=== PATIENT | female | born 1985 ===

== ENCOUNTER 2022-05-24 10:39 | Inpatient (IN) | payer BC ==
[2022-05-24 13:30] VITALS: BMI 27.4
[2022-05-24] MEDS ORDERED: ACETAMINOPHEN 325 MG TABLET (FP) PO PRN ×2 (14:08)
[2022-05-24] MEDS ORDERED: chlordiazePOXIDE HCL 25 MG CAPSULE PO PRN (14:08)
[2022-05-24] MEDS ORDERED: IBUPROFEN 400 MG TABLET (FP) PO PRN (14:08)
[2022-05-24] MEDS ORDERED: MAGNESIUM CITRATE 300 ML BOTTLE PO PRN (14:08)
[2022-05-24] MEDS ORDERED: LOPERAMIDE HCL 2 MG CAPSULE PO PRN (14:08)
[2022-05-24] MEDS ORDERED: BISMUTH SUBSALICYLATE 524 MG/30 ML PO PRN (14:08)
[2022-05-24] MEDS ORDERED: DICYCLOMINE HCL 10 MG CAPSULE PO PRN (14:08)
[2022-05-24] MEDS ORDERED: MAG HYDROX/AL HYDROX/SIMETH 30 ML UNIT-DOSE CUP PO PRN (14:08)
[2022-05-24] MEDS ORDERED: BENZOCAINE/MENTHOL (CHLORASEPTIC ) LOZENGE MM PRN (14:08)
[2022-05-24] MEDS ORDERED: MAGNESIUM HYDROX 2400MG/30ML ORAL SUSPENSION 30 ML CUP PO PRN (14:08)
[2022-05-24] MEDS ORDERED: ONDANSETRON *ODT* 4 MG TABLET SL PRN (14:08)
[2022-05-24] MEDS ORDERED: HYDROCORTISONE 1% TOPICAL OINT 30 GM TUBE TP PRN (14:28)
[2022-05-24] MEDS: IBUPROFEN 600 MG TABLET (FP) PO PRN (15:26)
[2022-05-24] MEDS: LIDOCAINE 5% TOPICAL PATCH TP SCH (15:27)
[2022-05-24] MEDS: chlordiazePOXIDE HCL 25 MG CAPSULE PO SCH ×2 (17:31→22:42)
[2022-05-24] MEDS: hydrOXYzine PAMOATE 25 MG CAPSULE (FP) PO SCH ×2 (17:31→22:41)
[2022-05-24] MEDS ORDERED: MELATONIN 5 MG TABLETS PO SCH (22:00)
[2022-05-24] MEDS: QUEtiapine FUMARATE 25 MG TABLET PO PRN (22:42)
[2022-05-24] MEDS: THIAMINE HCL 100 MG TABLET (FP) PO SCH (22:42)
[2022-05-24] MEDS: APIXABAN 5 MG TABLET PO SCH (22:42)
[2022-05-24] MEDS: LIDOCAINE PATCH REMOVAL MC SCH (22:43)
[2022-05-24] MEDS: NICOTINE POLACRILEX 2 MG GUM BUC PRN (22:45)
[2022-05-25] MEDS: hydrOXYzine PAMOATE 25 MG CAPSULE (FP) PO SCH ×5 (05:48→22:18)
[2022-05-25] MEDS: chlordiazePOXIDE HCL 25 MG CAPSULE PO SCH ×4 (05:48→22:18)
[2022-05-25] MEDS: NICOTINE POLACRILEX 2 MG GUM BUC PRN ×2 (05:50→20:26)
[2022-05-25] MEDS ORDERED: ALBUTEROL SO4 HFA INHALER IH PRN (09:06)
[2022-05-25] MEDS: APIXABAN 5 MG TABLET PO SCH ×2 (11:06→22:18)
[2022-05-25] MEDS: PRENATAL VITAMINS W/ FOLIC ACID TABLET (FP) PO SCH (11:06)
[2022-05-25] MEDS: LIDOCAINE 5% TOPICAL PATCH TP SCH (12:26)
[2022-05-25] MEDS ORDERED: methaDONE HCL 10 MG TABLET (FOR DETOX USE ONLY) PO ONE (12:39)
[2022-05-25 14:31] LABS: HEMATOCRIT 34.7 % (32.4-45.2); HEMOGLOBIN 11.5 GM/dL (10.7-15.3); MCH 30.5 pg (25.7-33.7); MCHC 33.1 g/dl (32.0-36.0); MEAN PLT VOLUME 8.9 fl (7.5-11.1); PLATELET COUNT 152 10^3/uL (134-434); RBC 3.77 M/mm3 (3.60-5.2); RDW 19.4 % (11.6-15.6); WHITE BLOOD COUNT 4.9 K/mm3 (4.0-10.0)
[2022-05-25 14:43] LABS: BLOOD UREA NITROGEN 10.5 mg/dL (7-18); CALCIUM 8.1 mg/dL (8.5-10.1)
[2022-05-25 14:44] LABS: ALBUMIN 2.9 g/dl (3.4-5.0)
[2022-05-25 14:46] LABS: CREATININE 0.6 mg/dL (0.55-1.3)
[2022-05-25 14:48] LABS: BILIRUBIN,TOTAL 0.6 mg/dL (0.2-1); TOT PROT 5.9 g/dl (6.4-8.2)
[2022-05-25 15:33] LABS: HIV INTERPRETATION NEGATIVE (NEGATIVE)
[2022-05-25 17:34] LABS: EPI CELLS >36 /uL (0-25.1); HYALINE CASTS 1 /uL (0-3.1); PH,URINE 5.5 (5.0-8.0); URINE APPEARANCE CLOUDY; URINE BACTERIA 1753 /uL (0-1359); URINE BILIRUBIN NEGATIVE (NEGATIVE); URINE COLOR YELLOW; URINE GLUCOSE (UA) NEGATIVE (NEGATIVE); URINE KETONE NEGATIVE (NEGATIVE); URINE LEUK ESTERASE TRACE (NEGATIVE); URINE NITRITE NEGATIVE (NEGATIVE); URINE PROTEIN NEGATIVE (NEGATIVE); URINE RBC 49 /uL (0-23.9); URINE UROBILINOGEN 0.2 mg/dL (0.2-1.0); URINE WBC 120 /uL (0-25.8)
[2022-05-25] MEDS: METHOCARBAMOL 500 MG TABLET PO PRN (18:36)
[2022-05-25 18:41] LABS: URINE CRYSTALS MANY /hpf
[2022-05-25] MEDS: THIAMINE HCL 100 MG TABLET (FP) PO SCH (22:18)
[2022-05-25] MEDS: SUVOREXANT 10 MG TABLET PO PRN (22:19)
[2022-05-26] MEDS: LIDOCAINE PATCH REMOVAL MC SCH ×2 (00:04→23:38)
[2022-05-26] MEDS: QUEtiapine FUMARATE 25 MG TABLET PO PRN (02:34)
[2022-05-26] MEDS: hydrOXYzine PAMOATE 25 MG CAPSULE (FP) PO SCH ×5 (05:59→22:19)
[2022-05-26] MEDS: chlordiazePOXIDE HCL 25 MG CAPSULE PO SCH ×4 (05:59→22:19)
[2022-05-26] MEDS: APIXABAN 5 MG TABLET PO SCH ×2 (09:42→22:19)
[2022-05-26] MEDS: LIDOCAINE 5% TOPICAL PATCH TP SCH (09:42)
[2022-05-26] MEDS: PRENATAL VITAMINS W/ FOLIC ACID TABLET (FP) PO SCH (09:44)
[2022-05-26] MEDS ORDERED: methaDONE HCL 10 MG TABLET (FOR DETOX USE ONLY) PO ONE ×2 (10:00)
[2022-05-26] MEDS: NICOTINE 10 MG CARTRIDGE (INHALER) IH PRN (13:32)
[2022-05-26] MEDS: NITROFURANTOIN MACROCRYSTAL 50 MG CAPSULE (FP) PO SCH ×3 (13:50→22:19)
[2022-05-26] MEDS: METHOCARBAMOL 500 MG TABLET PO PRN (17:01)
[2022-05-26] MEDS: THIAMINE HCL 100 MG TABLET (FP) PO SCH (22:19)
[2022-05-26] MEDS: SUVOREXANT 10 MG TABLET PO PRN (22:20)
[2022-05-27] MEDS ORDERED: chlordiazePOXIDE HCL 10 MG CAPSULE PO PRN
[2022-05-27] MEDS: QUEtiapine FUMARATE 25 MG TABLET PO PRN ×2 (01:33→22:14)
[2022-05-27] MEDS: chlordiazePOXIDE HCL 10 MG CAPSULE PO SCH ×4 (05:59→22:14)
[2022-05-27] MEDS: hydrOXYzine PAMOATE 25 MG CAPSULE (FP) PO SCH ×2 (05:59→10:08)
[2022-05-27] MEDS ORDERED: methaDONE HCL 10 MG TABLET (FOR DETOX USE ONLY) PO ONE (10:00)
[2022-05-27] MEDS: LIDOCAINE 5% TOPICAL PATCH TP SCH (10:08)
[2022-05-27] MEDS: PRENATAL VITAMINS W/ FOLIC ACID TABLET (FP) PO SCH (10:08)
[2022-05-27] MEDS: APIXABAN 5 MG TABLET PO SCH ×2 (10:08→22:14)
[2022-05-27] MEDS: METHOCARBAMOL 500 MG TABLET PO PRN (10:09)
[2022-05-27] MEDS: NITROFURANTOIN MACROCRYSTAL 50 MG CAPSULE (FP) PO SCH ×4 (10:10→22:15)
[2022-05-27] MEDS: NICOTINE 10 MG CARTRIDGE (INHALER) IH PRN ×2 (10:16→17:55)
[2022-05-27] MEDS: CALCIUM 250MG/VIT-D 125 UNITS 1 COMBO TABLET PO SCH (12:34)
[2022-05-27] MEDS: hydrOXYzine PAMOATE 50 MG CAPSULE (FP) PO PRN (13:04)
[2022-05-27] MEDS: THIAMINE HCL 100 MG TABLET (FP) PO SCH (22:14)
[2022-05-27] MEDS: SUVOREXANT 10 MG TABLET PO PRN (22:17)
[2022-05-27] MEDS: LIDOCAINE PATCH REMOVAL MC SCH (22:20)
[2022-05-28] MEDS: hydrOXYzine PAMOATE 50 MG CAPSULE (FP) PO PRN ×2 (03:42→18:09)
[2022-05-28] MEDS: chlordiazePOXIDE HCL 10 MG CAPSULE PO SCH ×2 (05:15→18:08)
[2022-05-28] MEDS: METHOCARBAMOL 500 MG TABLET PO PRN ×2 (05:32→18:09)
[2022-05-28] MEDS: IBUPROFEN 600 MG TABLET (FP) PO PRN (05:32)
[2022-05-28] MEDS ORDERED: methaDONE HCL 10 MG TABLET (FOR DETOX USE ONLY) PO SCH (10:00)
[2022-05-28] MEDS ORDERED: methaDONE HCL 10 MG TABLET (FOR DETOX USE ONLY) PO ONE (10:00)
[2022-05-28] MEDS: APIXABAN 5 MG TABLET PO SCH (10:09)
[2022-05-28] MEDS: CALCIUM 250MG/VIT-D 125 UNITS 1 COMBO TABLET PO SCH (10:09)
[2022-05-28] MEDS: NITROFURANTOIN MACROCRYSTAL 50 MG CAPSULE (FP) PO SCH ×3 (10:09→18:54)
[2022-05-28] MEDS: PRENATAL VITAMINS W/ FOLIC ACID TABLET (FP) PO SCH (10:09)
[2022-05-28] MEDS: LIDOCAINE 5% TOPICAL PATCH TP SCH (10:09)
[2022-05-28] MEDS: NICOTINE 10 MG CARTRIDGE (INHALER) IH PRN (10:58)
[2022-05-28 12:47] VITALS: RESP 18
[2022-05-28] MEDS ORDERED: LACTULOSE 20 GM/30 ML UDC (FOR ORAL USE ONLY) PO SCH (15:30)
[2022-05-28 19:07] VITALS: BP 141/78; PULSE 71; TEMP 97.4
[2022-05-29] MEDS ORDERED: chlordiazePOXIDE HCL 10 MG CAPSULE PO ONE (05:00)
[2022-05-29] MEDS ORDERED: methaDONE HCL 10 MG TABLET (FOR DETOX USE ONLY) PO ONE (06:00)
== END 2022-05-28 20:05 | disposition left against medical advice (07) | DRG 770 ==
LOC: YASAS 10:39 → Y6N 15:03
PROVIDERS: ADMIT Allergy & Immunology; ATTEND Surgery
PROC: HZ2ZZZZ Detoxification Services for Substance Abuse Treatment (ICD-10-PCS; principal; 2022-05-24)
DX: F11.23 Opioid dependence with withdrawal (principal); F10.230 Alcohol dependence with withdrawal, uncomplicated; F14.20 Cocaine dependence, uncomplicated; F12.20 Cannabis dependence, uncomplicated; F17.210 Nicotine dependence, cigarettes, uncomplicated; F10.282 Alcohol dependence with alcohol-induced sleep disorder; F10.280 Alcohol dependence with alcohol-induced anxiety disorder; F39 Unspecified mood [affective] disorder; F41.9 Anxiety disorder, unspecified; I10 Essential (primary) hypertension; J45.909 Unspecified asthma, uncomplicated; N39.0 Urinary tract infection, site not specified; M54.50 Low back pain, unspecified; G89.29 Other chronic pain; R73.03 Prediabetes; Z86.711 Personal history of pulmonary embolism; Z86.718 Personal history of other venous thrombosis and embolism; Z79.01 Long term (current) use of anticoagulants
CPT/HCPCS: 36415; 80053; 81003; 81025; 82140; 85027; 86780; 87389; 93005; 93010; C9803-CS; Q0162; U0003; U0005